=== PATIENT | female | born 1945 | race Caucasian/White ===

== ENCOUNTER → 2023-07-31 14:32 | Outpatient (REF) | payer MEDICARE, SELFPAY | LOC: HWRAD 14:32 | PROVIDERS: ATTENDING PHYSICIAN Student in an Organized Health Care Education/Training Program; FAMILY PHYSICIAN Family Medicine | DX: N18.4 Chronic kidney disease, stage 4 (severe) (principal) | CPT/HCPCS: 76770 ==

== ENCOUNTER 2023-12-18 00:12 | Emergency (ER) | payer MEDICARE, SELFPAY ==
[2023-12-18 00:15] VITALS: BP 169/115
--- NOTE | 2023-12-18 00:48 | ED.GENMED ---
History of Present Illness
General
Chief Complaint: Flank Pain
Source: patient
Exam Limitations: none
Time Seen by Provider: 12/18/23 00:21
History of Present Illness
History of Present Illness:
This is a 78 year old female that comes in with c/o right back pain. States that she has a history of UTI as she had one after [place]. States that this morning at 5am she awoke with right sided back pain and she was hoping it was her back. States
that she took Tylenol and this did not help with the pain. States that she went to see the PCP and he felt it was a UTI and put the patient on Cefpodoxime of which patient had one dose. States that she also took Tylenol 650mg at 7pm. States that the
pain is not getting any better. Denies any fever, chills, chest pain, SOB, abd pain, nausea, vomiting, diarrhea, headache, dizziness, urinary burning or frequency.
Past History
Past History
ED Past Medical History: Cancer (Rectal cancer, Breast CA), GERD, HTN, Hypercholesterolemia, Other (Thyroid nodule, UTI, Diverticulitis, Cellulitis, Blood clot in the neck) and Other (Post menopausal bleeding January 2010, septic thrombophlebitis
of the right IJ to SVC 05/06); Negative CAD
ED Past Surgical History: Bowel resection (Rectal resection June 2010), Orthopedic (Right and left Bunionectomy) and Other (Left breast Lumpectomy)
Social History
Tobacco: Non-smoker
Alcohol: None
Personal:
Living: with family
Employment: Not employed
Family History
Family History: Negative Diabetes or CAD
Review of Systems
Review of Systems
All Other Systems: ROS reviewed and negative except as documented in HPI and ROS
Constitutional: Reports no symptoms; Denies fever or chills
EENT: Reports no symptoms
Respiratory: Reports no symptoms; Denies cough or trouble breathing
Cardiac: Reports no symptoms; Denies chest pain
ABD/GI: Reports no symptoms; Denies abdominal pain, nausea, vomiting or diarrhea
: Reports no symptoms; Denies dysuria, frequency or urgency
Musculoskeletal: Reports back pain (Right sided)
Skin: Reports no symptoms
Neurological: Reports no symptoms; Denies dizzy or headache
Psychiatric: Reports no symptoms
Phy Exam
General Physical Exam
General Presentation: no apparent distress
General age: appears stated age
General Skin: warm and dry
General Habitus: elderly
General Mental: alert
General Hydration: dry mucous membranes
ENT Exam
ENT Exam: TM's normal, pharynx normal and neck supple
Eye Exam
Eye Exam: EOMI
Cardiovascular Exam
Cardiovascular Exam: regular rate/rhythm, no edema and normal peripheral pulses
Pulmonary Exam
Pulmonary Exam: lungs clear, no respiratory distress, no rales, chest non tender, no crackles, no rhonchi, no wheezing and no cough
Gastrointestinal Exam
Gastrointestinal Exam: normal bowel sounds, non tender, soft, no organomegaly, no pulsatile mass, non distended and no cva tenderness
Musculoskeletal Exam
Musculoskeletal Exam: full ROM and no edema
Skin Exam
Skin Exam: normal color, warm/dry, no rash and no petechia
Psychiatric Exam
Psychiatric Exam: normal mood/affect
Course
Orders/Labs/Results
Orders:
Orders
12/18/23 00:47
CT Abd/pel Without Iv Or Oral Urgent
Comment:
Reason For Exam: Right back pain
0.9% Sodium Chloride 500 ml [Nss] 500 ml IV BOLUS
12/18/23 00:56
Acetaminophen [Tylenol] 1,000 mg PO NOW STA
12/18/23 01:12
Complete Blood Count/With Diff Urgent
Comprehensive Metabolic Panel Urgent
Urinalysis Reflex To Culture Urgent
Date Specimen was Collected: 12/18/23
Time Specimen was Collected: 01:05
Urine Microscopic Reflex Cult Urgent
Urine Culture Urgent
VIKTORIYA Source: U
Specimen Description:
Date Specimen was Collected: 12/18/23
Time Specimen was Collected: 01:05
12/18/23 01:49
CefTRIAXone [Rocephin] 1,000 mg IV NOW STA
Abnormal Lab Results
12/18/23
01:12
RBC 3.84 L 10^6/uL
(4.20-5.40)
Hct 35.0 L %
(37.0-47.0)
MCH 31.3 H pg
(27.0-31.0)
Absolute Monos (auto) 0.7 H 10^3/uL
(0.1-0.6)
BUN 44 H mg/dl
(7-17)
Creatinine 1.8 H mg/dL
(0.6-1.0)
Glucose 110 H mg/dl
(70-99)
Leukocyte Esterase Rfl 1+ A
(Negative)
Urine WBC (Reflex) 50-60 A /HPF
(0-5)
Urine Bacteria (Reflex) Moderate A
(Negative)
Urine Albumin (Reflex) 1+ A
(Neg - Trace)
12/18/23 01:12
12/18/23 01:12
Urine positive for infection. Chronic renal insufficiency, Glucose nonfasting.
Vital Signs
Initial and Last Documented VS:
Initial Vital Signs
Temp Pulse Resp BP Pulse Ox
98.3 F 72 19 169/115 95
12/18/23 00:15 12/18/23 00:15 12/18/23 00:15 12/18/23 00:15 12/18/23 00:15
Last Documented Vital Signs
Temp Pulse Resp BP Pulse Ox
98.3 F 72 19 146/84 93
12/18/23 00:15 12/18/23 00:15 12/18/23 00:15 12/18/23 01:04 12/18/23 01:15
MDM/Problems Addressed
Differential Diagnosis Includes:
Renal calculus, Back pain,
MDM/Problems Addressed:
This is a 78 year old female that comes in with c/o right sided back pain. States that this started at 5am yesterday. Patient went to see the PCP and he felt it was a UTI and put patient on antibiotic of which she only had one dose.
Will get labs, CT scan and given IV fluids.
Back into see patient. Explained that her CT is negative for any acute process. She does have a UTI. This may be Pyelonephritis due to patient right sided back pain. Will give patient a dose of IV Rocephin and give patient a new prescription for
antibiotic as she was told to only take the antibiotic that she was given once daily. Patient can use Tylenol 1000mg every 6 hours for pain. Patient to return with fever, increased or changing pain, or any other concerns,
Chronic conditions affecting care: Cancer
Acute Exacerbation and/or Progression of Chronic Illness:
history of UTI
*Radiology
Radiology exam reviewed: radiology read reviewed (CT night hawk- NO acute abnormality within the abd or pelvis. o bowel obstruction. Normal gallbladder and appendix. Incidentals: Moderate stool burden. No obstructive uropathy. Moderate hiatal
hernia. No hepatic or pancreatic mass. No acute abdominal aortic aneurysm. No acute osseous abnormality. ) and other (CT cont- NO acute abnormality within the visualized lungs. No acute abnormality within the visualized soft tissues. )
*Pulse Oximetry
Patient hypoxic: no
*EKG
Interpreted by ED Provider?: NA
Rate: EKG- N/A
*Snagger Interpretation
Rate: Snagger- N/A
*Critical Care Note
Total Time (30-74mins, 75-104mins- exclusive of procedures): Not Applicable
ED Attending Note
-
Portions of this chart may have been created with voice recognition software.� Occasional wrong word or��sound alike� substitutions may have occurred due to the inherent limitations of voice recognition software.
Discharge Plan
Departure
Patient Disposition: Home (Routine Discharge)
Date of Disposition: 12/18/23
Time of Disposition: 01:55
Patient with high blood pressure during this ER visit?: Yes
Condition: Good
Covid-19: Not Applicable
Discharge Problem:
Acute UTI (urinary tract infection)
Instructions: Urinary tract infections in adults, BLOOD PRESSURE
Prescriptions:
New
cefdinir 300 mg capsule
300 mg PO BID Qty: 14 0RF
No Action
quinapril [Accupril] 40 MG tablet
40 mg PO DAILY
anastrozole 1 MG tablet
1 mg PO DAILY
cholecalciferol (vitamin D3) [Vitamin D3] 1,000 UNIT capsule
1,000 unit PO DAILY
zixhergk-qck-sydk-FA-vit K-lut [Centrum Silver Women] 1 EACH tablet
1 ea PO DAILY
Calcium
750 mg PO DAILY
Stool Softener
1 tab PO DAILY
meclizine 25 MG tablet
25 mg PO Q8HPRN PRN (Reason: nausea or vertigo) Qty: 21 0RF
cefdinir 300 mg capsule
300 mg PO BID Qty: 14 0RF
Referrals:
Zhang Bright MD [Family Provider] - Call in 1-3 days for appt
Activity Restrictions/Additional Instructions:
As discussed, your CT is negative for any acute process. Your urine is positive for infection. This may be a kidney infection due to your pain in the right back area. You have been given IV antibiotic here and continue with your antibiotic that you
have been given by your family doctor. Please increase your water intake to 8-8oz glasses daily. You may take Tylenol 1000mg every 6 hours for pain as needed. Follow up with the family doctor. for recheck. IF YOU HAVE FEVER, INCREASED OR CHANGING
PAIN, OR YOU HAVE ANY OTHER CONCERNS PLEASE RETURN TO THE EMERGENCY ROOM.
Interventions
Interventions:
*Risk Screen - Suicide Last Done: 12/18/23 00:15
*General Assessment Last Done: 12/18/23 00:15
*Neglect/Abuse Screening Last Done: 12/18/23 00:15
*ED COVID-19 Vaccine History Last Done: 12/18/23 00:15
GR-Irxqqy-Gqlcdzasac Assessment Last Done: 12/18/23 01:14
ED-Female Genitourinary Assessment Last Done: 12/18/23 01:14
Discharge Date and Time
Print Language: OMANI
[2023-12-18 01:04] VITALS: BP 146/84
[2023-12-18] MEDS: TYLENOL 1000 MG PO (01:08)
[2023-12-18] MEDS: NSS 500 IV (01:08)
[2023-12-18 01:14] VITALS: BMI 33.3
[2023-12-18 01:22] LABS: % Basophils 0.5 % (0-2); % Eosinophils 1.7 % (0-6); % Immature Granulocytes 0.2 % (0-0.5); % Lymphocytes 22.9 % (20.5-51.1); % Monocytes 8.4 % (1.7-9.3); % Neutrophils 66.3 % (42.2-75.2); Absolute Eosinophils 0.1 10^3/uL (0-0.7); Absolute Lymphocytes 1.9 10^3/uL (1.2-3.4); Absolute Monocytes 0.7 10^3/uL (0.1-0.6); Absolute Neutrophils 5.5 10^3/uL (1.4-6.5); Mean Corp Hgb Conc. 34.3 g/dL (33.0-37.0); Mean Corpuscular Hgb 31.3 pg (27.0-31.0); Mean Corpuscular Volume 91.1 fL (81.0-99.0); Mean Platelet Volume 9.4 fL (7.4-10.4); Nucleated Red Blood Cells % 0 %; Platelet Count 181 10^3/uL (130-400); Red Blood Cell Count 3.84 10^6/uL (4.20-5.40); Red Cell Dist. Width 13.5 % (11.5-14.5); Urine Albumin 1+ (Neg - Trace); Urine Bilirubin Negative (Negative); Urine Character Clear (Clear); Urine Color Yellow; Urine Glucose Negative (Negative); Urine Ketone Negative (Negative); Urine Leukocyte 1+ (Negative); Urine Nitrite Negative (Negative); Urine Occult Blood Negative (Negative); Urine Urobilinogen Negative (Neg - 1+); White Blood Cell Count 8.2 10^3/uL (4.8-10.8)
[2023-12-18 01:37] LABS: Urine Squamous Cell >30 /LPF (Few)
[2023-12-18 01:38] LABS: Urine Urothelial Cell 16-20 /LPF (FEW)
[2023-12-18 01:40] LABS: Urine Amorphous Seen; Urine Mucus Moderate
[2023-12-18 01:41] LABS: Urine Bacteria Moderate (Negative); Urine Red Blood Cell 0-2 /HPF (0-2); Urine White Cell 50-60 /HPF (0-5)
[2023-12-18 01:53] LABS: ALT (SGPT) 13 U/L (0-35); AST (SGOT) 27 U/L (14-36); Albumin 3.9 g/dl (3.5-5.0); Alkaline Phosphatase 77 U/L (38-126); Blood Urea Nitrogen 44 mg/dl (7-17); Calcium 9.4 mg/dl (8.4-10.2); Carbon Dioxide 25 mmol/L (22-30); Chloride 107 mmol/L (98-107); Estimated Creatinine Clearance 28 ml/min; Glucose 110 mg/dl (70-99); Potassium 4.2 mmol/L (3.5-5.1); Sodium 141 mmol/L (135-145); Total Bilirubin 0.4 mg/dl (0.2-1.3); Total Protein 6.7 g/dl (6.3-8.2); eGFR 28.66
[2023-12-18] MEDS: ROCEPHIN 1000 MG IV (01:57)
== END 2023-12-18 02:10 | disposition home or self-care (01) ==
LOC: EMR 00:12
PROVIDERS: Clinical Nurse Specialist Family Health; EMERGENCY PHYSICIAN Emergency Medicine; FAMILY PHYSICIAN Family Medicine
DX: N39.0 Urinary tract infection, site not specified (principal); I10 Essential (primary) hypertension
CPT/HCPCS: 99284; 96374; 74176; 80053; 81003; 81015; 85025; 87086